=== PATIENT | male | born 1990 | race Caucasian/White ===

== ENCOUNTER 2018-06-24 07:03 | Emergency (ER) | payer BC ==
[2018-06-24 07:35] VITALS: BP 136/85
--- NOTE | 2018-06-24 08:16 | UC ---
Respiratory Complaint HPI - HPI Summary HPI Summary: Patient presents to urgent care with 2 concerns. 1) patient states for 3 months he is intermittently having a cough. Patient states sometimes is productive of yellow sputum. Patient denies sinus congestion but states he does sometimes feel some postnasal drip. No ear pain. No sore throat pain. Patient has taken cough drops and an occasional cough medicine with improvement. Cough does not wake him up at night. Patient denies sick contacts. Patient denies loss of voice. No shortness of breath. No chest pain. Patient does exercise and states sometimes the coughing and his sputum seems worse with exercise. Patient denies wheeze. Patient denies smoking. Patient's not have hobbies with fumes. no vaping. Patient did get a flu shot. Patient does not have a history of asthma or recurrent bronchitis. Patient does not have any complaints today. Patient did use a cough up once yesterday. 2) patient states for apprioximately one month occasionally feels like he cannot urinate completely. Patient states it feels like is a slight obstruction. Patient does not have any abdominal distention. Patient without any back pain. No dysuria. No hematuria. No pain in his penis or testicles. No hematuria. No penile discharge. No lesions. No concern for STD. Patient states he's got a history of renal stone several years ago. No intervention. Patient does not have any pain with a piece. Pt called his PCP - unable to get appt for 2 months - History of Current Complaint Chief Complaint: UCRespiratory Stated Complaint: COUGH Time Seen by Provider: 06/24/18 08:15 Hx Obtained From: Patient Timing: Intermittent Episodes Severity Initially: Mild Severity Currently: None Pain Intensity: 0 - Allergies/Home Medications Allergies/Adverse Reactions: Allergies Allergy/AdvReac Type Severity Reaction Status Date / Time No Known Allergies Allergy Verified 06/24/18 07:29 Home Medications: Home Medications Multivitamins/Minerals TAB* [Theragran/minerals TAB*] 1 tab PO DAILY 06/24/18 [ History Confirmed 06/24/18] PMH/Surg Hx/FS Hx/Imm Hx Previously Healthy: Yes GI/ History: Kidney Stones - Surgical History Surgical History: Yes Surgery Procedure, Year, and Place: left groin "vessel removal" as child - Social History Occupation: Employed Part-time Lives: With Family Alcohol Use: Rare Substance Use Type: None Smoking Status (MU): Never Smoked Tobacco Review of Systems All Other Systems Reviewed And Are Negative: Yes Constitutional: Positive: Negative Skin: Positive: Negative Genitourinary: Positive: Other - feeling of urinary obstruction - pt able to urinate Physical Exam - Summary Physical Exam Summary: Vital Signs Reviewed: Yes A+Ox3, no distress Eyes: Conjunctiva Clear, NAILA. EOM intact and full ENT: Hearing grossly normal TM x 2 clear, turbinates mildly inflammed + PND - clear/slight yellow, mmoist, uvula midline, no exudate, no erythema Neck: Positive: Supple Respiratory: Positive: No respiratory distress, No accessory muscle use + CTA throughout no w/r no cough, speaking full easy sentences Cardiovascular: RRR nl s1, s2 no m/r CBT <2 sec abd soft + BS nt/nd no guarding, no distension Musculoskeletal Exam: VELA x 4 without difficulty Strength Intact, ROM Intact Neurological: Positive: Alert, + sensation throughout Psychological: Positive: Normal Response To Family Skin: Positive: no rash, no ecchymosis Triage Information Reviewed: Yes Vital Signs: Initial Vital Signs Temp 97.6 F 06/24/18 07:30 Pulse 75 06/24/18 07:30 Resp 15 06/24/18 07:30 BP 136/85 06/24/18 07:30 Pulse Ox 100 06/24/18 07:30 UC Diagnostic Evaluation - Laboratory O2 Sat by Pulse Oximetry: 100 - Radiology Radiology Interpretation Completed By: Radiologist - Patient Name: YAZMIN CALI Medical Record#: [id number] Respiratory Course/Dx - Course Course Of Treatment: Patient presents to urgent care 2 complaints. One, patient states she's been having intermittent episodes of coughing for the last 3 months. Patient states intermittently productive of yellow sputum. Patient states that we cannot night. No other complaints. Patient without wheezing or short of breath. Patient uses cough medicine her cough drops with relief. Pt without symptoms currently VSS lung clear Pt does have some mild PND CXR unremarkable -recommend histamine/decongestant, rx flonase, humidify air - return precautions. 2) pt with feeling intermittent urinary obstruction but able to urinate no other complaints. urine reviewed and wnl. referral to urology - h/o renal colic. Pt also given referral for physician referral services and unable to schedule with pcp for 2 months. return precuations discussed. pt comfortable and in agreement with plan - Differential Dx/Diagnosis Provider Diagnosis: Cough, Post-nasal drainage, Urinary symptom or sign Discharge - Sign-Out/Discharge Documenting (check all that apply): Patient Departure All imaging exams completed and their final reports reviewed: Yes - Discharge Plan Condition: Stable Disposition: HOME Prescriptions: Fluticasone NASAL SPRAY 50MCG* [Flonase NASAL SPRAY 50MCG*] 2 spray BOTH NARES DAILY #1 btl Patient Education Materials: Acute Cough (ED) Referrals: [facility] [facility] [place]Outside] No Primary Care Phys,NOPCP [Primary Care Provider] - Kj Street MD [Medical Doctor] - Additional Instructions: - It is recommended you use flonase nasal spray as prescribed - It is recommended you take an antihistamine / decongestant (Claritin-D, Nyasia-D, Zyrtec-D) daily - humidify the air in the room where you sleep - it is recommended you schedule a follow-up with your primary care provider. If you are unable to get into [facility] - you have been given contact information for the physician referral center to schedule a follow-up appointment - You have also been given contact information for the urologist - it is recommended you schedule a follow-up for your urinary symptoms. If you are unable to urinate, develop blood in your urine, back pain or fever it is recommended you go to the emergency department for further evaluation - Billing Disposition and Condition Condition: STABLE Disposition: Home
== END 2018-06-24 08:50 | disposition home or self-care (01) ==
LOC: UCCORT 07:03
DX: R05 Cough (principal); R09.82 Postnasal drip; R39.9 Unspecified symptoms and signs involving the genitourinary system
CPT/HCPCS: 71046; 81003; 99212; G0463

== ENCOUNTER 2018-12-14 11:55 | Emergency (ER) | payer BC ==
[2018-12-14 12:23] VITALS: BP 131/82
--- NOTE | 2018-12-14 12:43 | UC ---
General HPI - HPI Summary HPI Summary: pt removed a tick from his L knee around 9pm on Friday night. he had been hiking. he is unsure how long the tick was there. concerned because site is red. - History of Current Complaint Chief Complaint: JIMENAkin Stated Complaint: LEFT KNEE SKIN Time Seen by Provider: 12/14/18 12:36 Hx Obtained From: Patient Pain Intensity: 0 Associated Signs & Symptoms: Positive: Other - no fatgue or joint pains. Negative: Fever - Allergy/Home Medications Allergies/Adverse Reactions: Allergies Allergy/AdvReac Type Severity Reaction Status Date / Time No Known Allergies Allergy Verified 12/14/18 12:23 PMH/Surg Hx/FS Hx/Imm Hx Previously Healthy: Yes - Surgical History Surgical History: Yes Surgery Procedure, Year, and Place: left groin "vessel removal" as child - Family History Known Family History: Positive: Non-Contributory - Social History Occupation: Employed Full-time Alcohol Use: Occasionally Substance Use Type: None Smoking Status (MU): Never Smoked Tobacco - Immunization History Vaccination Up to Date: Yes Review of Systems All Other Systems Reviewed And Are Negative: Yes Constitutional: Negative: Fever, Chills, Fatigue Musculoskeletal: Negative: Arthralgia Physical Exam Triage Information Reviewed: Yes Appearance: Well-Appearing Vital Signs: Initial Vital Signs Temp 98 F 12/14/18 12:19 Pulse 57 12/14/18 12:19 Resp 14 12/14/18 12:19 BP 131/82 12/14/18 12:19 Pulse Ox 100 12/14/18 12:19 Vital Signs Reviewed: Yes Eyes: Positive: Conjunctiva Clear Neck: Positive: Supple Respiratory: Positive: Lungs clear, Normal breath sounds Cardiovascular: Positive: RRR, No Murmur Abdomen Description: Positive: Nontender Bowel Sounds: Positive: Present Musculoskeletal: Positive: ROM Intact Neurological: Positive: Alert Psychological: Positive: Age Appropriate Behavior Skin Exam: Normal, Other - Abrasion on L knee with slight pink where tick removed. no bullseye. Course/Dx - Differential Dx - Multi-Symptom Differential Diagnoses: Other - site c/w insect bite and abrasion. no concern for lyme disease. - Diagnoses Provider Diagnosis: Tick bite Discharge - Sign-Out/Discharge Documenting (check all that apply): Patient Departure All imaging exams completed and their final reports reviewed: No Studies - Discharge Plan Condition: Stable Disposition: HOME Prescriptions: DOXYcycline CAP(*) [DOXYcycline 100MG CAP(*)] 200 mg PO ONCE #2 cap Patient Education Materials: Tick Bite (ED) Referrals: No Primary Care Phys,NOPCP [Primary Care Provider] - Additional Instructions: follow up with your primary care as needed. - Billing Disposition and Condition Condition: STABLE Disposition: Home
== END 2018-12-14 12:58 | disposition home or self-care (01) ==
LOC: UCCORT 11:55
DX: W57.XXXA Bitten or stung by nonvenomous insect and other nonvenomous arthropods, initial encounter (principal); S80.262A Insect bite (nonvenomous), left knee, initial encounter; Y92.9 Unspecified place or not applicable
CPT/HCPCS: 99212; G0463

== ENCOUNTER 2019-10-05 14:56 | Emergency (ER) | payer BC, OTHER ==
[2019-10-05] MEDS ORDERED: Ondansetron INJ* 2 MG/ML VIAL IV ONE (15:09)
[2019-10-05] MEDS ORDERED: NS 0.9% 1000 ML** 1,000 ML IV ONE (15:09)
[2019-10-05 15:41] LABS: ABS Basophils 0.1 10^3/ul (0-0.2); ABS Eosinophils 0.1 10^3/ul (0-0.6); ABS Lymphocytes 2.3 10^3/ul (1.0-4.8); ABS Monocytes 0.7 10^3/ul (0-0.8); ABS Neutrophils 4.9 10^3/ul (1.5-7.7); Eosinophil % 1.7 %; Hematocrit 45 % (42-52); Hemoglobin 15.9 g/dL (14.0-18.0); Lymphocyte % 28.4 %; Mean Corpuscular HGB Conc 36 g/dL (31-36); Mean Corpuscular Hemoglobin 32 pg (27-31); Mean Corpuscular Volume 91 fL (80-94); Mean Platelet Volume 9.5 fL (7.4-10.4); Nucleated Red Blood Cells % 0.1; Platelet Count 218 10^3/uL (150-450); Red Blood Count 4.92 10^6 /uL (4.18-5.48); Red Cell Distribution Width 12 % (10-15); White Blood Count 8.1 10^3/uL (3.5-10.8)
[2019-10-05 16:06] LABS: Albumin 4.4 g/dL (3.2-5.2); Albumin/Globulin Ratio 1.7 (1-3); BUN/Creatinine Ratio 14.7 (8-20); C Reactive Protein 2.5 mg/L (<8.01); Calcium 9.4 mg/dL (8.6-10.3); EGFR African American 105.2 (>60); Globulin 2.6 g/dL (2-4); Magnesium 1.7 mg/dL (1.9-2.7); Potassium 3.6 mmol/L (3.5-5.0); Total Bilirubin 0.8 mg/dL (0.2-1.0)
[2019-10-05] MEDS ORDERED: Magnesium Oxide TAB* 400 MG PO ONE (16:32)
[2019-10-05 16:43] VITALS: BP 141/80
--- NOTE | 2019-10-07 10:51 | ED ---
Abdominal Pain/Male - HPI Summary HPI Summary: This patient is a 29-year-old male with no past significant medical history presenting to the ED with 2 weeks intermittent right upper quadrant pain. Patient states symptoms are worse after a fatty meal. Improves spontaneously and without eating. States over the past few days, symptoms improved until last evening when he ate a steak with mushrooms. He states since then he has had this right upper quadrant pain which is rated an 8/10, constant and aching. RUQ pain x2 wks. Reports it improved for a few days but became much more severe after eating steak w/ mushrooms. Reports nausea after eating. Denies fever/ chills. States he still has his galbladder. - History of Current Complaint Chief Complaint: EDAbdPain Stated Complaint: ABDOMINAL PAIN AND NAUSEA PER PT Time Seen by Provider: 10/05/19 15:02 Hx Obtained From: Patient Onset/Duration: Gradual Onset Timing: Constant Severity Initially: Moderate Severity Currently: Mild Pain Intensity: 2 Pain Scale Used: 0-10 Numeric Location: Discrete At: RUQ Radiates: No Aggravating Factor(s): Nothing Alleviating Factor(s): Nothing Associated Signs And Symptoms: Positive: Negative. Negative: Constipation, Blood in Stool, Urinary Symptoms, Nausea, Vomiting, Diarrhea - Risk Factors Testicular Torsion: Negative Cardiac Risk Factors: Negative - Allergies/Home Medications Allergies/Adverse Reactions: Allergies Allergy/AdvReac Type Severity Reaction Status Date / Time No Known Allergies Allergy Verified 12/14/18 12:23 Home Medications: Home Medications Multivitamins/Minerals TAB* [Theragran/minerals TAB*] 1 tab PO DAILY 06/24/18 [ History Confirmed 10/05/19] Metoclopramide TAB* [Reglan TAB*] 10 mg PO Q6H PRN #12 tab 10/05/19 [Rx] PMH/Surg Hx/FS Hx/Imm Hx Previously Healthy: Yes - Surgical History Surgery Procedure, Year, and Place: left groin "vessel removal" as child - Immunization History Hx Pertussis Vaccination: No Immunizations Up to Date: Yes Infectious Disease History: No Infectious Disease History: Denies: Traveled Outside the [place] in Last 30 Days - Family History Known Family History: Positive: Non-Contributory - Social History Occupation: Employed Full-time Lives: Alone Alcohol Use: Occasionally Hx Substance Use: No Substance Use Type: Reports: None Hx Tobacco Use: No Smoking Status (MU): Never Smoked Tobacco Review of Systems Negative: Fever, Chills, Fatigue, Skin Diaphoresis Negative: Palpitations, Chest Pain Negative: Cough Positive: Abdominal Pain - RUQ pain, Nausea. Negative: Vomiting, Diarrhea Negative: Arthralgia, Myalgia Skin: Negative All Other Systems Reviewed And Are Negative: Yes Physical Exam Triage Information Reviewed: Yes Vital Signs On Initial Exam: Initial Vitals Temp Pulse Resp BP Pulse Ox 97.4 F 64 18 144/92 98 10/05/19 14:57 10/05/19 14:57 10/05/19 14:57 10/05/19 14:57 10/05/19 14:57 Vital Signs Reviewed: Yes Appearance: Positive: Well-Appearing, No Pain Distress, Well-Nourished Skin: Positive: Warm, Skin Color Reflects Adequate Perfusion Head/Face: Positive: Normal Head/Face Inspection Eyes: Positive: NAILA, Conjunctiva Clear Neck: Positive: Supple, No Lymphadenopathy Respiratory/Lung Sounds: Positive: Clear to Auscultation, Breath Sounds Present Cardiovascular: Positive: RRR, Pulses are Symmetrical in both Upper and Lower Extremities Abdomen Description: Positive: Soft, Other: - RUQ pain, + murphys, negative rovsings Musculoskeletal: Positive: Strength/ROM Intact Neurological: Positive: Sensory/Motor Intact, Alert, Oriented to Person Place, Time, Speech Normal Psychiatric: Positive: Normal, Affect/Mood Appropriate AVPU Assessment: Alert Procedures - Sedation Patient Received Moderate/Deep Sedation with Procedure: No Diagnostics - Vital Signs Vital Signs Temp Pulse Resp BP Pulse Ox 10/05/19 16:44 97.6 F 63 17 141/80 98 10/05/19 16:36 66 141/80 98 10/05/19 16:30 66 98 10/05/19 16:15 68 97 10/05/19 16:13 65 137/76 98 10/05/19 16:00 75 97 10/05/19 15:45 69 97 10/05/19 15:44 62 97 10/05/19 15:43 154/79 10/05/19 14:57 97.4 F 64 18 144/92 98 - Laboratory Lab Results: Lab Results 10/05/19 10/05/19 10/05/19 Range/Units 15:25 15:25 15:25 WBC 8.1 (3.5-10.8) 10^3/uL RBC 4.92 (4.18-5.48) 10^6 /uL Hgb 15.9 (14.0-18.0) g/dL Hct 45 (42-52) % MCV 91 (80-94) fL MCH 32 H (27-31) pg MCHC 36 (31-36) g/dL RDW 12 (10-15) % Plt Count 218 (150-450) 10^3/uL MPV 9.5 (7.4-10.4) fL Neut % (Auto) 60.6 % Lymph % (Auto) 28.4 % [place] % (Auto) 8.2 % Eos % (Auto) 1.7 % Baso % (Auto) 1.1 % Absolute Neuts (auto) 4.9 (1.5-7.7) 10^3/ul Absolute Lymphs (auto) 2.3 (1.0-4.8) 10^3/ul Absolute Monos (auto) 0.7 (0-0.8) 10^3/ul Absolute Eos (auto) 0.1 (0-0.6) 10^3/ul Absolute Basos (auto) 0.1 (0-0.2) 10^3/ul Absolute Nucleated RBC 0.0 10^3/ul Nucleated RBC % 0.1 Sodium 139 (135-145) mmol/L Potassium 3.6 (3.5-5.0) mmol/L Chloride 102 (101-111) mmol/L Carbon Dioxide 30 (22-32) mmol/L Anion Gap 7 (2-11) mmol/L BUN 15 (6-24) mg/dL Creatinine 1.02 (0.67-1.17) mg/dL Est GFR ( Amer) 105.2 (>60) Est GFR (Non-Af Amer) 87.0 (>60) BUN/Creatinine Ratio 14.7 (8-20) Glucose 102 H (70-100) mg/dL Lactic Acid 1.0 (0.5-2.0) mmol/L Calcium 9.4 (8.6-10.3) mg/dL Magnesium 1.7 L (1.9-2.7) mg/dL Total Bilirubin 0.80 (0.2-1.0) mg/dL AST 25 (13-39) U/L ALT 46 (7-52) U/L Alkaline Phosphatase 70 (34-104) U/L C-Reactive Protein 2.50 (<8.01) mg/L Total Protein 7.0 (6.4-8.9) g/dL Albumin 4.4 (3.2-5.2) g/dL Globulin 2.6 (2-4) g/dL Albumin/Globulin Ratio 1.7 (1-3) Lipase 19 (11.0-82.0) U/L Result Diagrams: 10/05/19 15:25 10/05/19 15:25 Lab Statement: Any lab studies that have been ordered have been reviewed, and results considered in the medical decision making process. Abdominal Pain Male Course/Dx - Course Course Of Treatment: Patient arrives to the ED with reports of nausea with right upper quadrant pain associated with meals, more specifically after eating fatty meals for the past 2 weeks. He states it is been fairly intermittent and mild until last evening when he had very sharp pains in his right upper quadrant after eating a steak and mushroom meal. He rises to the ED and states he is having only mild tenderness to the RUQ at this time. He denies any nausea at this time. Labs are obtained which are fairly unremarkable except for a slight hypomagnesemia at 1.7. He was repleted with PO magnesium oxide 400 mg. Gallbladder ultrasound obtained which shows no acute pathologies. Labs do not appear to be indicative of cholecystitis or cholangitis pathology. PT is asymptomatic at this time. Discussed with the patient if he develops any new or worsening symptoms to return to the ED. - Diagnoses Differential Diagnosis/HQI/PQRI: Other - gallbladder pathology, sludge, gastroparesis, nausea, RUQ pain Provider Diagnoses: Abdominal pain - Critical Care Time Critical Care Statement: Critical care time is provided exclusive of any time spent performing procedures. Discharge ED - Sign-Out/Discharge Documenting (check all that apply): Patient Departure - Discharge Plan Condition: Stable Disposition: HOME Prescriptions: Metoclopramide TAB* [Reglan TAB*] 10 mg PO Q6H PRN #12 tab PRN Reason: Nausea Patient Education Materials: Acute Nausea and Vomiting (ED), Abdominal Pain (ED ) Referrals: No Primary Care Phys,NOPCP [Primary Care Provider] - Additional Instructions: Eat small amounts of food at a time Reglan 10mg four times daily until gone This will help with your nausea Refrain from fatty foods You were seen in emergency department for nausea and vomiting and abdominal pain. - For the fnext 2-3 hours, eat and drink clears (water, kath brandon, soup broth, jello, popsicles, Gatorade). If you tolerate this okay, add bland foods such as dry toast, scrambled eggs, crackers. Wait until you are feeling better for 24 hours before eating spicy food, acidic food, tomato based food, fried food. - Contact your doctor to schedule a follow-up appointment - Contact your doctor or return with questions or concerns Return to the ED for worsening symptoms Magnesium: 400mg at bedtime for 2 weeks - Billing Disposition and Condition Condition: STABLE Disposition: Home - Attestation Statements Provider Attestation: I was available for consult. This patient was seen by the DOMINGO. The patient was not presented to, seen by, or examined by me. -Chris
== END 2019-10-05 16:44 | disposition home or self-care (01) ==
LOC: ED 14:56
DX: R10.11 Right upper quadrant pain (principal)
CPT/HCPCS: 36415; 76705; 80053; 83605; 83690; 83735; 85025; 86140; 96361; 96374; 99283; J2405